=== PATIENT | male | born 1955 | race Caucasian/White ===

== ENCOUNTER 2020-05-11 10:17 | Emergency (ER) | payer MEDICARE, MEDICAID, SELFPAY ==
--- NOTE | 2020-05-11 10:18 | XR_ITS ---
WS: [id number] EXAM: AP PELVIS AND 2 VIEWS OF THE RIGHT HIP DATE OF EXAMINATION: 05/11/2020, 1030 hours COMPARISON: None. HISTORY: Patient is 64 years old with right hip pain status post twisting injury. Symptoms for the last month . FINDINGS: Bone density is normal in appearance. There are slight changes of arthritis lower lumbar spine. Surgi karma clips to the left of the lower spine from prior surgical procedure. Slight arterial atherosclerot ic plaque formation seen. Minimal arthritis within both SI joints. The right hip joint is unremarkabl e. No fracture, lytic or blastic process. There is a loop of air-filled small bowel in the right mid abdomen which is fairly nonspecific. Please correlate for GI symptomatology. GI staple line is seen in the left false pelvis. Presumably from prior colon surgery. Please correlat e. XR/XR hip RT 2-3V wo/w pel* [id number] IMPRESSION: No abnormality involving the right hip. Arthritis lower lumbar spine and both S I joints. Postop staple line in the left false pelvis region near the inferior SI joint. Presumably related to prior colon surgery. Please correlate clinicall y. Loop of air-filled nondilated small bowel right mid abdomen. Please correlate f or GI symptomatology.
[2020-05-11 10:35] VITALS: BP 128/82; PULSE 90; RESP 18; TEMP 36.4; O2SAT 98; BMI 18.8
--- NOTE | 2020-05-11 11:16 | W.ED.LOWEXIN ---
HPI - Extremity Injury (Lower) General: Chief Complaint: Extremity Injury, Lower Stated Complaint: R HIP INJURY Time Seen by Provider: 05/11/20 11:08 Source: patient Mode of arrival: ambulatory Limitations: no limitations History of Present Illness: HPI Narrative: Patient is a 64-year-old male who presents to ED today for evaluation of right hip pain. Patient tells me a few weeks ago he was sat down cutting a tree (states he is unable to bend over and cut trees any more) and when the tree fell he quickly jumped up and moved out of the way and states he heard a pop in his right hip and has experienced pain since. Patient has continued to ambulate on the extremity. Patient states over the past week pain has worsened. Patient is not describing any numbness, tingling, loss of sensation to his lower extremities. MD complaint: hip injury Onset (ago): week(s) Injury: Right: hip and pelvis Place: home Severity: severe Exacerbating factors: weight bearing, movement and palpation Associated symptoms: Reports no associated symptoms Other symptoms: none Review of Systems Const: Denies: fever(s) or chills GI: Denies: abdominal pain Musc: Reports: back pain, joint pain and joint stiffness; Denies: neck pain, extremity pain, extremity swelling, joint swelling, joint redness or limited range of motion Neuro: Denies: numbness in extremities, weakness in extremities, sensory changes or frequent falls Physical Exam Const: COMMON NORMALS: no acute distress, patient oriented x3, no limitations and alert GI: COMMON NORMALS: Soft to palpation, No hepatosplenomegaly present and no masses INSPECTION: Yes other (colostomy bag present) PALPATION: Yes Soft to palpation and Yes No hepatosplenomegaly present Back/Pelvis: COMMON NORMALS: thoracic and lumbar spine normal to inspection, no thoracic nor lumbar tenderness and thoraco-lumbar ROM normal SACROILIAC JOINTS: Yes SI joint(s) abnormal (TTP R) Extremity: COMMON NORMALS: full ROM, capillary refill normal, no joint enlargement, no clubbing, cyanosis or edema, no calf tenderness and no pedal edema GENERAL: Yes normal exam except as noted RIGHT LOWER EXTREMITY: Yes hip joint (TTP lateral/posterior ) Neuro: COMMON NORMALS: patient oriented x3, moves all extremities, no focal motor deficits and no sensory deficits noted SENSORIUM/ORIENTATION: Yes alert Skin: COMMON NORMALS: no rashes or lesions noted GENERAL SKIN EXAM: no rashes or lesions noted Course Vital Signs: Vital signs: Vital Signs Temperature 97.5 F L 05/11/20 10:35 Pulse Rate 90 05/11/20 10:35 Respiratory Rate 18 05/11/20 10:35 Blood Pressure 128/82 05/11/20 10:35 Pulse Oximetry 98 05/11/20 10:35 MDM - Extremity Injury (Lower) Imaging Data^: XR R hip/pelvis: Radiologist's impression: [facility] [address] [place] [address] XRay Report Signed Patient: Tushar Wilkins Unit #: [id number] : 1955 Age/Sex: 64 / M ADM Date: 05/11/20 Loc: ER Room/Bed: Attending Dr: Ordering Provider/Ordering MD: Joellen Valadez Date of Service: 05/11/20 Procedure(s): XR hip RT 2-3V wo/w pel* [id number] Accession Number(s): [id number] Report Number: [id number] WS: [id number] EXAM: AP PELVIS AND 2 VIEWS OF THE RIGHT HIP DATE OF EXAMINATION: 05/11/2020, 1030 hours COMPARISON: None. HISTORY: Patient is 64 years old with right hip pain status post twisting injury. Symptoms for the last month. FINDINGS: Bone density is normal in appearance. There are slight changes of arthritis lower lumbar spine. Surgical clips to the left of the lower spine from prior surgical procedure. Slight arterial atherosclerotic plaque formation seen. Minimal arthritis within both SI joints. The right hip joint is unremarkable. No fracture, lytic or blastic process. There is a loop of air-filled small bowel in the right mid abdomen which is fairly nonspecific. Please correlate for GI symptomatology. GI staple line is seen in the left false pelvis. Presumably from prior colon surgery. Please correlate. XR/XR hip RT 2-3V wo/w pel* [id number] IMPRESSION: No abnormality involving the right hip. Arthritis lower lumbar spine and both SI joints. Postop staple line in the left false pelvis region near the inferior SI joint. Presumably related to prior colon surgery. Please correlate clinically. Loop of air-filled nondilated small bowel right mid abdomen. Please correlate for GI symptomatology. Dictated By: Landon Frankel MD Signed By: Landon Frankel MD Signed Date/Time: 05/11/20 1036 DD/ 1033 Discharge Plan Discharge Patient Disposition: Home Clinical Impression: Acute pain of right hip Condition: Stable Prescriptions: New ibuprofen 800 mg tablet 800 mg PO Q8H PRN (Reason: pain) Qty: 20 RF: 0 tramadol 50 mg tablet 50 mg PO Q6H PRN (Reason: pain) Qty: 14 RF: 0 Medrol (Johnathon) 4 mg tablets,dose pack See Rx Instructions .ROUTE .COMPLEX Qty: 21 RF: 0 No Action clopidogrel 75 mg tablet 75 mg PO DAILY Qty: 90 RF: 3 Discharge Orders: Discharge Order (Routine); Ordered 05/11/20 Ordered By: Joellen Valadez Referrals: Lindsay North DO [Primary Care Provider] - Activity Restrictions/Additional Instructions: As discussed you may use the anti-inflammatory/ibuprofen as directed. Begin the steroid pack as well. Please reserve the Tramadol for severe pain only. You may keep your appointment with Dr. Mckeon next week for further evaluation. Coding Level of Care Code ED Sponsorship Coordinator for Ellie Covington
[2020-05-11 12:04] VITALS: BP 118/81; PULSE 86; RESP 16; O2SAT 95
== END 2020-05-11 12:04 | disposition home or self-care (01) ==
PROVIDERS: Emergency Provider Physician Assistant; Family Provider Family Medicine; PCP Family Medicine
DX: M25.551 Pain in right hip (principal)
CPT/HCPCS: 12345; 73502; 99282

== ENCOUNTER 2021-01-05 21:44 | Observation (INO) | payer MEDICARE, MEDICAID, SELFPAY ==
[2021-01-05 21:46] VITALS: BP 120/70; PULSE 71; RESP 18; TEMP 36.8; O2SAT 97; BMI 18.8
--- NOTE | 2021-01-05 21:50 | XR_ITS ---
WS: [id number] Left hip, AP and frog-leg views, AP pelvis, 01/05/2021 Clinical Data: fall Comparison: Pelvis and right hip, 05/11/2020. Findings: There is a line in the midportion of the left acetabulum which could represent a nondisplaced fractur e. The soft tissues are not remarkable. The adjacent pelvis is normal. The right hip is normal. The S I joints and pubic symphysis are unremarkable. There is a lateral plate attached to the mid and distal left femur. XR/XR hip LT 2-3V wo/w pel* [id number] Impression: 1. Probable undisplaced fracture of the left acetabulum. 2. Negative for left femoral head or left intertrochanteric fracture.
--- NOTE | 2021-01-05 21:54 | XR_ITS ---
WS: [id number] Left shoulder, 3 views, 01/05/2021 Clinical Data: fall Comparison: None. Findings: No fractures or dislocations are seen. The AC joint is normal. The adjacent left clavicle, left scapu la and ribs are normal. The soft tissues are unremarkable. XR/XR shoulder LT min 2V* [id number] Impression: Negative left shoulder.
--- NOTE | 2021-01-05 21:55 | ED_ITS ---
HPI - Fall General: Chief Complaint: Fall Stated Complaint: L HIP PAIN AND FALL Time Seen by Provider: 01/05/21 21:48 Source: patient and EMS Mode of arrival: EMS Limitations: no limitations History of Present Illness: HPI Narrative: 65-year-old male states he fell out of a truck that was sitting roughly an hour ago. He states he landed on his left hip. He states he had surgery on that hip before. He states he had pain difficulty standing. He states also shoulder pain. He denies any head injury or neck pain. He rates his pain a 5 out of 10. Associated symptoms-after fall: Denies abdominal pain, chest pain or headache(s) Review of Systems Const: Denies: fever(s), chills, body aches or change in appetite Eyes: Denies: blurry vision or eye discomfort ENMT: Denies: throat pain or dental pain Card: Denies: chest pain Resp: Denies: dyspnea GI: Denies: abdominal pain, nausea, vomiting or diarrhea : Denies: dysuria Musc: Reports: extremity pain Skin/Breast: Denies: rash Neuro: Denies: headache(s) Psych: Denies: depression Cristofer/Lymph: Denies: easy bruising All/Imm: Denies: urticaria PFSH ED PFSH: Medical History Alcohol abuse Colostomy in place Depression Hypotension Insomnia Peripheral vascular disease Psoriasis Surgical History History of intravascular stent placement (~2011) patient states that he has had many stents placed and I don't remember them all, but they were all in 2011 . S/P aorto-bifemoral bypass surgery Aortobifemoral bypass postop complication due to ischemic bowel underwent partial colectomy with ostomy Family History Denies family history of Suicide Anesthesia complication Bleeding disorder Stroke Social History Smoking and tobacco status: current every day smoker cigarettes Packs smoked per day: 2 Alcohol intake: current Alcohol intake frequency: 0-2 Drinks per Day Marital status: / service: No Current occupational status: unemployed, retired and disabled Physical Exam Const: COMMON NORMALS: no acute distress, patient oriented x3 and healthy appearing HENMT: COMMON NORMALS: normocephalic and atraumatic HEAD & SCALP: normocephalic and atraumatic Eye: COMMON NORMALS: Equal, round and reactive pupils present and EOMs intact bilaterally PUPIL: Yes Equal, round and reactive pupils present Neck/C-Spine: COMMON NORMALS: full ROM and supple Chest: COMMONS NORMALS: normal inspection of the chest and normal palpation of entire chest wall Resp: COMMON NORMALS: normal respiratory effort, No retractions, No use of accessory muscles and clear to auscultation bilaterally AUSCULTATION: clear to auscultation bilaterally Cardio: COMMON NORMALS: regular rate, regular rhythm and No murmurs present (Cardio) RATE: regular rate RHYTHM: regular rhythm GI: COMMON NORMALS: Normal to inspection, nondistended, normoactive bowel sounds present, Soft to palpation, non-tender and no masses PALPATION: Yes Soft to palpation Extremity: COMMON NORMALS: normal to inspection and full ROM Neuro: COMMON NORMALS: patient oriented x3, moves all extremities and no focal motor deficits Psych: COMMON NORMALS: mental status grossly normal, Normal thought process present and cooperative THOUGHT PROCESS: Normal thought process present Skin: COMMON NORMALS: no rashes or lesions noted and no wounds GENERAL SKIN EXAM: no rashes or lesions noted Course Vital Signs: Vital signs: Vital Signs Temperature 98.2 F 01/05/21 21:46 Pulse Rate 70 01/05/21 22:49 Respiratory Rate 18 01/05/21 22:56 Blood Pressure 120/70 01/05/21 21:46 Pulse Oximetry 98 01/05/21 22:56 MDM - Fall MDM Narrative: Medical decision making narrative: Patient presents with acetabular fracture from a fall. Patient is also intoxicated. He has no other injuries from his fall. Spoke to hospitalist will admit for pain control. Also consulted orthopedic surgeon. Lab Data: Labs: Lab Results 01/05/21 01/05/21 01/05/21 Range/Units 20:33 20:33 20:33 WBC 6.6 (4.0-10.0) 10^3/ uL RBC 5.15 (4.1-5.3) 10^6/u L Hgb 16.3 (11.7-16.6) g/dL Hct 48.2 (42.0-52.0) % MCV 93.6 (80-94) fL MCH 31.7 (28.0-34.0) pg MCHC 33.8 (30.0-36.0) g/dL RDW 13.2 (12.1-15.1) % Plt Count 138 (130-400) 10^3/c mm MPV 10.3 (7.4-10.4) fL Neut % (Auto) 64.7 % Lymph % (Auto) 20.0 % [place] % (Auto) 11.9 % Eos % (Auto) 1.2 % Baso % (Auto) 1.1 % Neut # (Auto) 4.24 (1.8-7.7) 10^3/u L Lymph # (Auto) 1.3 (0.8-4.8) 10^3/u L [place] # (Auto) 0.8 (0.2-0.9) 10^3/u L Eos # (Auto) 0.1 (0.0-0.8) 10^3/u L Baso # (Auto) 0.1 (0.0-0.1) 10^3/u L Nucleated RBC % (a uto) 0 % Nucleated RBCs # 0.0 /100WBC PT 13.60 (12.1-14.9) SECO NDS INR 1.01 (0.8-1.2) Sodium 129 L (136-145) mmol/L Potassium 3.7 (3.5-5.1) mmol/L Chloride 94 L (98-107) mmol/L Carbon Dioxide 20 L (22-29) mmol/L Anion Gap 18.7 (5-19) BUN 11 (8-23) mg/dL Creatinine 0.9 (0.7-1.2) mg/dL GFR Calculation 85.0 L (90-130) mL/min Glucose 111 (65-115) mg/dL Calculated Osmolal ity 268 L (285-295) mOsm/k g Calcium 8.7 (8.5-10.5) mg/dL Total Bilirubin 0.4 (0.15-1.2) mg/dL AST 56 H (0-40) U/L ALT 36 (0-41) U/L Alkaline Phosphata se 83 (40-130) IU/L Total Protein 7.9 (6.6-8.7) g/dL Albumin 4.6 (3.5-5.2) g/dL Globulin 3.3 (1.3-4.6) g/dL Ethyl Alcohol 211 H (0-10) mg/dL Imaging Data^: Other CT: Radiologist's impression: [address] [address] [address] Scan Report Signed Patient: Tushar Wilkins Unit #: [id number] : 1955 Age/Sex: 65 / M ADM Date: 01/05/21 Loc: ER Room/Bed: Attending Dr: Ordering Provider/Ordering MD: Moris Samano MD Date of Service: 01/05/21 Procedure(s): CT hip LT wo con* [id number] Accession Number(s): [id number] Report Number: [id number] PROCEDURE INFORMATION: Exam: CT Left Lower Extremity Without Contrast, Hip Exam date and time: 01/05/2021 10:34 PM Age: 65 years old Clinical indication: Injury or trauma; Blunt trauma; Prior surgery; Surgery type: Femoral fixation; Patient HX: Fall. C/O left hip pain. TECHNIQUE: Imaging protocol: CT of the Left lower extremity without contrast was performed. Exam focused on the hip. Radiation optimization: All CT scans at this facility use at least one of these dose optimization techniques: automated exposure control; mA and/or kV adjustment per patient size (includes targeted exams where dose is matched to clinical indication); or iterative reconstruction. COMPARISON: CR XR hip LT 2-3V wo/w pel* [id number] 01/05/2021 9:52 PM RADIATION DOSE METRICS: Total DLP (mGy-cm): 348.16 FINDINGS: Bones/joints: There is a mildly comminuted nondisplaced fracture through the roof of the acetabulum Soft tissues: Normal. CT/CT hip LT wo con* [id number] IMPRESSION: Acute nondisplaced fracture through the roof of the acetabulum on the left. Radiation Dose CTDIVOL = (mGy): DLP = 348.16 (mGy-cm) Discharge Plan Discharge Patient Disposition: Admitted As Inpatient Admit Provider: Nasreen Hilton Clinical Impression: Acute alcohol intoxication Qualifiers: Complication of substance-induced condition: uncomplicated Qualified Code(s): F10.920 - Alcohol use, unspecified with intoxication, uncomplicated Acetabular fracture Qualifiers: Encounter type: initial encounter Fracture type: closed Fracture alignment: nondisplaced Laterality: left Fall Qualifiers: Encounter type: initial encounter Qualified Code(s): W19.XXXA - Unspecified fall, initial encounter Condition: Stable Coding Level of Care Code ED Recruit Instructor for g Fwd Exam Comprehensive
--- NOTE | 2021-01-05 22:29 | CTR_ITS ---
PROCEDURE INFORMATION: Exam: CT Left Lower Extremity Without Contrast, Hip Exam date and time: 01/05/2021 10:34 PM Age: 65 years old Clinical indication: Injury or trauma; Blunt trauma; Prior surgery; Surgery type: Femoral fixation; Patient HX: Fall. C/O left hip pain. TECHNIQUE: Imaging protocol: CT of the Left lower extremity without contrast was performed. Exam focused on the hip. Radiation optimization: All CT scans at this facility use at least one of these dose optimization techniques: automated exposure control; mA and/or kV adjustment per patient size (includes targeted exams where dose is matched to clinical indication); or iterative reconstruction. COMPARISON: CR XR hip LT 2-3V wo/w pel* [id number] 01/05/2021 9:52 PM RADIATION DOSE METRICS: Total DLP (mGy-cm): 348.16 FINDINGS: Bones/joints: There is a mildly comminuted nondisplaced fracture through the roof of the acetabulum Soft tissues: Normal. CT/CT hip LT wo con* [id number] IMPRESSION: Acute nondisplaced fracture through the roof of the acetabulum on the left. Radiation Dose CTDIVOL = (mGy): DLP = 348.16 (mGy-cm)
[2021-01-05 22:49] VITALS: PULSE 70; RESP 15; O2SAT 98
[2021-01-05 22:56] VITALS: RESP 18; O2SAT 98
[2021-01-05] MEDS: morphine 4 mg/mL SDV 1 mL IVP (22:56)
--- NOTE | 2021-01-05 23:13 | PM.HP ---
Providers/Chief Complaint Primary Care Provider: Lindsay North DO Chief Complaint: L HIP PAIN AND FALL History of Present Illness Tushar Wilkins is a 65 year old male who has history of alcohol abuse, peripheral vascular disease, nicotine dependence presented today after sustaining a fall. Patient stating that he was loading logs when he lost his balance fell off the truck and fell on his left hip. He could not stand on left leg. He is denying chest pain, seizure activities, dizziness, he is attributing his fall to Wood logs falling on him. Yesterday he had 3 cans of beer and 2-4 shots of vodka. On daily basis he drinks 6 beers with 2-4 shots of vodka, smokes 1 to 2 packs of cigarettes a day. Never had any withdrawal from alcohol. Diagnostics in the ER revealed left acetabular roof fracture, inoperable, orthopedics consulted, recommended not weightbearing, patient is complaining of excruciating pain for which he is currently being admitted, he is intoxicated, alcohol level 211, sodium 129 Review of Systems Const: Denies: fever(s) Eyes: Denies: change in vision ENMT: Denies: throat pain Card: Denies: chest pain Resp: Denies: dyspnea GI: Denies: abdominal pain : Denies: flank pain Musc: Denies: neck pain Skin/Breast: Reports: rash, lesions, dry skin and nail changes Neuro: Denies: headache(s) Psych: Denies: anxiety Endo: Denies: polyuria Cristofer/Lymph: Denies: easy bruising All/Imm: Denies: urticaria Medications/Allergies Home Medications Medication Instructions Recorded Confirmed Last Taken Type clopidogrel 75 mg tablet 75 mg PO DAILY #90 tab 02/03/20 05/18/20 Unknown Rx ibuprofen 800 mg PO Q8H PRN #20 tab 05/11/20 05/18/20 Unknown Rx methylprednisolone [Medrol (Johnathon)] See Rx Instructions .ROUTE 05/11/20 05/18/20 Unknown Rx .COMPLEX #21 each tramadol 50 mg PO Q6H PRN #14 tab 05/11/20 05/18/20 Unknown Rx tramadol 50 mg tablet 50 mg PO Q6H PRN #30 tab 05/18/20 05/18/20 Unknown Rx Allergies Allergy/AdvReac Type Severity Reaction Status Date / Time nitroglycerin Allergy rash Verified 05/18/20 10:44 PFSH Acute PFSH: Medical History Alcohol abuse Colostomy in place Depression Hypotension Insomnia Peripheral vascular disease Psoriasis Surgical History History of intravascular stent placement (~2011) patient states that he has had many stents placed and I don't remember them all, but they were all in 2011 . S/P aorto-bifemoral bypass surgery Aortobifemoral bypass postop complication due to ischemic bowel underwent partial colectomy with ostomy Family History Denies family history of Suicide Anesthesia complication Bleeding disorder Stroke Social History Smoking and tobacco status: current every day smoker cigarettes Packs smoked per day: 2 Alcohol intake: current Alcohol intake frequency: 0-2 Drinks per Day Marital status: / service: No Current occupational status: unemployed, retired and disabled Vitals/I&O/Wt Last Vital Signs Temp 98.2 F 01/05/21 21:46 Pulse 70 01/05/21 22:49 Resp 18 01/05/21 22:56 BP 120/70 01/05/21 21:46 Pulse Ox 98 01/05/21 22:56 Weight last 48 hrs Weight 54.431 kg Physical Exam Narrative: EXAM NARRATIVE: Middle-age male was currently laying supine when entered the room Unkept appearance, Hands and clothes covered in dirt S1, S2 sinus rhythm with systolic murmur, no active signs of heart failure Bilateral breath sounds without adventitious rhonchi or crackles Abdomen soft nontender Colostomy bag has stool content No extremity no edema gangrene or ulcer Looks malnourished and emaciated Psoriasis, dry benavidez skin scales on extensor surfaces EOMI, PERRLA no neurological deficit Appropriate mood and affect no active signs of withdrawal Data : 01/05/21 20:33 01/05/21 20:33 A&P Assessment and plan (1) Hip fracture: Status: Acute (2) Acute alcohol intoxication: Status: Acute Additional A&P Information Hip fracture Patient sustained a fall which eject leading to losing balance while loading the truck with wood logs Left acetabular fracture Nonweightbearing, inoperable, orthopedic consulted, I will keep him on regular diet Eliquis for DVT prophylaxis Acute alcohol intoxication Last night he had 3 cans of beer and 2-4 shots of vodka Alcohol level reviewed No active signs of withdrawal at the time of my evaluation Start CIWA protocol Peripheral vascular disease: Continue Plavix No acute exacerbation, Kindly evaluate atorvastatin indication before discharge Full code Regular diet DVT prophylaxis Eliquis 2.5 twice daily Attestations Medical Necessity Statement*: Anticipating discharge in less than 48 hours, acetabular fracture and operable admitting overnight for pain management Time Spent in Patient Care: 35mins Coding Level of Care Code Acute Chemical Research Worker for Ellie Covington Diagnoses Hip fracture S72.009A Acute alcohol intoxication F10.929
[2021-01-05 23:16] LABS: Basophils # 0.1 10^3/uL (0.0-0.1); Basophils % 1.1 %; Eosinophils # 0.1 10^3/uL (0.0-0.8); Eosinophils % 1.2 %; Hematocrit 48.2 % (42.0-52.0); Hemoglobin 16.3 g/dL (11.7-16.6); Lymphocytes # 1.3 10^3/uL (0.8-4.8); Mean Corpuscular HGB Conc 33.8 g/dL (30.0-36.0); Mean Corpuscular Hemoglobin 31.7 pg (28.0-34.0); Mean Corpuscular Volume 93.6 fL (80-94); Mean Platelet Volume 10.3 fL (7.4-10.4); Monocytes # 0.8 10^3/uL (0.2-0.9); Monocytes % 11.9 %; Neutrophils # 4.24 10^3/uL (1.8-7.7); Neutrophils % 64.7 %; Nucleated Red Blood Cells % 0 %; Platelet Count 138 10^3/cmm (130-400); Red Blood Count 5.15 10^6/uL (4.1-5.3); Red Cell Distribution Width 13.2 % (12.1-15.1); White Blood Count 6.6 10^3/uL (4.0-10.0)
[2021-01-05 23:23] LABS: INR 1.01 (0.8-1.2)
[2021-01-05 23:29] LABS: Alanine Aminotransferase 36 U/L (0-41); Albumin Level 4.6 g/dL (3.5-5.2); Alcohol Level 211 mg/dL (0-10); Alkaline Phosphatase 83 IU/L (40-130); Anion Gap 18.7 (5-19); Aspartate Amino Transferase 56 U/L (0-40); Blood Urea Nitrogen 11 mg/dL (8-23); Calcium 8.7 mg/dL (8.5-10.5); Carbon Dioxide 20 mmol/L (22-29); Chloride 94 mmol/L (98-107); Globulin 3.3 g/dL (1.3-4.6); Glucose 111 mg/dL (65-115); Osmolality Calculated 268 mOsm/kg (285-295); Potassium 3.7 mmol/L (3.5-5.1); Sodium 129 mmol/L (136-145); Total Bilirubin 0.4 mg/dL (0.15-1.2); Total Protein 7.9 g/dL (6.6-8.7)
[2021-01-05 23:49] VITALS: PULSE 84; RESP 18; O2SAT 97
[2021-01-06] VITALS (10 sets, daily range): BP systolic 101–136; BP diastolic 55–76; PULSE 64–96; RESP 14–20; TEMP 36.6–37.3; O2SAT 93–98
[2021-01-06] MEDS: nicotine 21 mg Patch 1 PATCH TRANSDERMA ×2 (01:07→09:01)
[2021-01-06] MEDS: acetaminophen 500 mg Tablet PO (01:07)
[2021-01-06] MEDS: morphine 4 mg/mL SDV 1 mL 2 MG IVP ×3 (03:53→14:50)
[2021-01-06 06:26] LABS: Magnesium 1.8 mg/dL (1.7-2.3)
[2021-01-06] MEDS: apixaban 5 mg Tablet 2.5 MG PO (08:56)
[2021-01-06] MEDS: sennosides-docusate Tablet 1 TAB PO (08:58)
[2021-01-06] MEDS: multivitamin therapeutic Tablet 1 TAB PO (08:59)
[2021-01-06] MEDS: folic acid 1 mg Tablet PO (08:59)
[2021-01-06] MEDS: thiamine 100 mg Tablet PO (08:59)
[2021-01-06] MEDS: clopidogrel 75 mg Tablet PO (09:00)
--- NOTE | 2021-01-06 11:12 | PC.RESP ---
Smoking Cessation information sent to patient
--- NOTE | 2021-01-06 12:46 | PM.CONSULT ---
Providers/Reason For Consult Consulting Physican/Specialty*: Linsey Corral MD Reason for Consult*: Left acetabular fracture Requesting Physcian: Dr. Moris Samano Attending Physician: Anatoliy Painting Primary Care Provider: Lindsay North DO History of Present Illness History of Present Illness Tushar Wilkins is a 65 year old male who was in his usual state of health when he fell from a flatbed truck while standing on some logs. The patient fell onto his left lower extremity, and he presented to the emergency department complaining of pain and inability to weight-bear. The patient has a history of significant alcohol abuse, and he was intoxicated reportedly at the time of his presentation. He was unable to stand on his left leg, but he did deny chest pain or seizure activity prior to his fall. He notes that the logs did fall onto him once he had hit the ground. He was seen in the emergency department and at that time was found to have a comminuted nondisplaced fracture of the left acetabulum. Upon discussion, the emergency room was advised we could treat this nondisplaced acetabular fracture, but if surgical intervention was required, the patient went up to go to [place]. Review of Systems Const: Denies: fever(s), chills, body aches or change in appetite Eyes: Denies: change in vision, blurry vision or eye discomfort ENMT: Denies: throat pain or dental pain Card: Denies: chest pain Resp: Denies: dyspnea GI: Denies: abdominal pain, nausea, vomiting or diarrhea : Denies: flank pain or dysuria Musc: Reports: extremity pain; Denies: neck pain Skin/Breast: Reports: rash, lesions, dry skin and nail changes Neuro: Denies: headache(s) Psych: Denies: anxiety or depression Endo: Denies: polyuria Cristofer/Lymph: Denies: easy bruising All/Imm: Denies: urticaria Meds/Allergies Home Medications and Allergies Home Medications Medication Instructions Recorded Confirmed Last Taken Type acetaminophen [Tylenol Extra 1,000 mg PO PRN 01/06/21 01/06/21 01/04/21 History Strength] clopidogrel 75 mg PO QAM 01/06/21 01/06/21 01/05/21 History Allergies Allergy/AdvReac Type Severity Reaction Status Date / Time nitroglycerin Allergy rash Verified 01/06/21 08:43 Current Medications Current Medications Generic Name Dose Route Start Last Admin Trade Name Freq PRN Reason Stop Dose Admin Acetaminophen 500 mg 01/06/21 00:24 01/06/21 01:07 Acetaminophen 500 Mg Tablet PO 500 mg Q4H PRN Administration fever Apixaban 2.5 mg 01/06/21 09:00 01/06/21 08:56 Apixaban 5 Mg Tablet PO 2.5 mg BID@0900,2100 KIANNA Administration Clopidogrel Bisulfate 75 mg 01/06/21 09:00 01/06/21 09:00 Clopidogrel 75 Mg Tablet PO 75 mg DAILY KIANNA Administration Folic Acid 1 mg 01/06/21 09:00 01/06/21 08:59 Folic Acid 1 Mg Tablet PO 1 mg DAILY KIANNA Administration Morphine Sulfate 2 mg 01/06/21 00:24 01/06/21 09:01 Morphine 4 Mg/Ml Sdv 1 Ml IVP 2 mg Q4H PRN Administration SEVERE PAIN Multivitamins Therapeutic 1 tab 01/06/21 09:00 01/06/21 08:59 Multivitamin Therapeutic Tablet PO 1 tab DAILY KIANNA Administration Nicotine 1 patch 01/06/21 01:01 01/06/21 09:01 Nicotine 21 Mg Patch TRANSDERMA 1 patch DAILY KIANNA Administration Senna/Docusate Sodium 1 tab 01/06/21 09:00 01/06/21 08:58 Sennosides-Docusate Tablet PO 1 tab DAILY KIANNA Administration Thiamine Mononitrate 100 mg 01/06/21 09:00 01/06/21 08:59 Thiamine 100 Mg Tablet PO 100 mg DAILY KIANNA Administration PFSH Acute PFSH: Medical History Alcohol abuse Colostomy in place Depression Hypotension Insomnia Peripheral vascular disease Psoriasis Surgical History History of intravascular stent placement (~2011) patient states that he has had many stents placed and I don't remember them all, but they were all in 2011 . S/P aorto-bifemoral bypass surgery Aortobifemoral bypass postop complication due to ischemic bowel underwent partial colectomy with ostomy Family History Denies family history of Suicide Anesthesia complication Bleeding disorder Stroke Social History Smoking and tobacco status: current every day smoker cigarettes Packs smoked per day: 2 Alcohol intake: current Alcohol intake frequency: 0-2 Drinks per Day Marital status: / service: No Current occupational status: unemployed, retired and disabled Vitals/I&O/Wt Last Vital Signs Temp 98.6 F 01/06/21 11:43 Pulse 96 01/06/21 11:43 Resp 18 01/06/21 11:43 BP 130/70 01/06/21 11:43 Pulse Ox 98 01/06/21 11:43 01/05/21 01/06/21 01/06/21 22:59 06:59 14:59 Intake Total 140 / 140 Output Total 925 / 925 Balance -925 / -925 140 / 140 Weight last 48 hrs Weight 120 lb Physical Exam Const: COMMON NORMALS: no acute distress, patient oriented x3 and alert; negative for average body habitus, negative for healthy appearing and negative for well nourished GENERAL APPEARANCE: cooperative, comfortable and disheveled NUTRITIONAL APPEARANCE: underweight ORIENTATION/CONSCIOUSNESS: Yes awake, Yes oriented to person, Yes oriented to place and Yes oriented to time HENMT: COMMON NORMALS: normocephalic and atraumatic HEAD & SCALP: normocephalic and atraumatic Eye: GENERAL EYE: appearance normal, both eyes and all related structures Chest: COMMONS NORMALS: normal inspection of the chest Resp: COMMON NORMALS: normal respiratory effort EFFORT & INSPECTION: Yes able to speak in complete sentences and Yes symmetric chest movement Back/Pelvis: PELVIS: Yes Other pelvic findings (Tender to any range of motion or attempted palpation) Extremity: LEFT LOWER EXTREMITY: Yes hip joint (Patient is sitting up in a chair) Left hip: Yes inspection (There is no significant bruising), Yes palpation (Tender over the buttocks and lateral hip), Yes ROM (Pain with attempted range of motion) and Yes neurovascular exam (Intact distally) Neuro: COMMON NORMALS: patient oriented x3 SENSORIUM/ORIENTATION: Yes alert, Yes oriented to person, Yes oriented to place and Yes oriented to time Psych: COMMON NORMALS: mental status grossly normal APPEARANCE: Yes grossly normal ATTITUDE: Yes calm and Yes engaged ATTENTION/CONCENTRATION: Yes attention grossly intact Skin: COMMON NORMALS: no rashes or lesions noted GENERAL SKIN EXAM: no rashes or lesions noted Data Imaging^: Xray Ortho: I personally reviewed and interpreted this imaging study as follows: My impression: I have personally reviewed the patient's imaging of the pelvis. The small nondisplaced fracture line is visible. This is in the weightbearing portion of the acetabulum on the left. Additionally, previous hardware from the patient's ORIF of a more distal femur fracture on the same left femur is also visualized. Other CT: I personally reviewed and interpreted this imaging study as follows: My impression: CT of the acetabulum confirms that there is a comminuted minimally to nondisplaced acetabular roof fracture on the left. A&P Assessment and plan (1) Closed left acetabular fracture: Patient was admitted through the emergency department with complaints of inability to weight-bear on the left lower extremity. This occurred after he fell off a flat bed of a pickup truck and logs reportedly fell onto him. Upon presentation to the emergency department, he was acutely intoxicated. He was admitted to the hospital for monitoring and pain control. He appeared otherwise stable. Today, when the patient is evaluated, he is sitting up in a chair. He appears comfortable, but any palpation or range of motion to the patient's left lower extremity causes him discomfort. He notes he has a walker at home, and this is likely the result of his previous femur fracture on the same side which was treated by Dr. Mckeon. He also notes he has a wheelchair at home. He is strongly advised to remain nonweightbearing. I have advised him that if he weightbears and displaces this fracture, he will have to be transferred to a trauma center for definitive operative treatment. He appears to understand. Have also spoken about the patient with Dr. Painting, and I have advised him he is ready for discharge when medically appropriate. Status: Acute Qualifiers: Encounter type: initial encounter Sublocation of acetabulum: dome Fracture alignment: nondisplaced Qualified Code(s): S32.485A - Nondisplaced dome fracture of left acetabulum, initial encounter for closed fracture Consult Attestations Medical Necessity Statement: Per hospitalist team, the patient requires further monitoring. Coding Level of Care Code Acute Disk Recoater for g Fwd Exam Comprehensive Medical Decision Making Moderate Complexity Diagnoses Closed left acetabular fracture S32.485A Encounter type: initial encounter Sublocation of acetabulum: dome Fracture alignment: nondisplaced Comment Please include acetabular fracture treatment nonoperative
--- NOTE | 2021-01-06 13:39 | PC.CHAP ---
Pastoral Care Encounter/Spiritual Assessment Type of Contact [] Declined knitter mechanic visit [] Patient/Family/Request visit [] Outpatient visit [] Follow-up visit [] Physician referral [] Code/Alert [xx] Routine visit [] Staff referral [] Actively dying [] Patient sleeping [] Family support [] [] Out of room [] Palliative care [] [] Receiving care in room [] Pre-surgical visit [] Trauma [] Long length of stay [] ICU visit [] Other: Relational/Emotional Strength [] Patient feels connected with others/family/visitors/staff [] Distress [] Loneliness/isolation [] Abandonment Spirituality of Patient [] Person of Linda [] Attends Restorationist of their Linda [xx] Believes in Prayer [] Reads Bible or Methodist materials [] There are Spiritual issues to be addressed Sow Farm Barn Technician Interventions [xx] Prayer [xx] Active listening [xx] Non-anxious presence [] Spiritual/emotional support [] Crisis/trauma care [] Spiritual counseling [] Bereavement support [] Provided bereavement packet [] Provided Bible/devotional materials [] Provided toy/stuffed animal, coloring book to patient or family member [] Provided Communion [] Anointing/Isabel [] Salvation [xx] Completed spiritual assessment [] Other: Impact on Illness or Injury [] Angry [] Fearful [] Anxious [] Often cries [] Exhaustion [] Unable to work [] Unable to attend nondenominational [] Unable to walk/stand [] Unable to read [] Unable to drive [] Unable to eat/drink [] Unable to sleep [] Unable to be with family [] Patient intubated [] Other: Summary Patient stated he feels somewhat better than when he came in but wanted prayer for complete healing. Sow Farm Barn Technician complied. Patient did not want visit for any other reason except prayer. Time spent with patient 5 minutes
[2021-01-06] MEDS: magnesium sulfate premix 2 GM/50 ML PIGGYBACK IV (15:51)
[2021-01-06 16:29] LABS: Hemoglobin 15.7 g/dL (11.7-16.6)
[2021-01-06 17:04] LABS: Anion Gap 17.3 (5-19); Blood Urea Nitrogen 13 mg/dL (8-23); Calcium 8.9 mg/dL (8.5-10.5); Carbon Dioxide 19 mmol/L (22-29); Chloride 99 mmol/L (98-107); Creatinine Clr Calc Pharmacy 71.8187; Glomerular Filtration Rate 97.3 mL/min (90-130); Glucose 88 mg/dL (65-115); Osmolality Calculated 272 mOsm/kg (285-295); Potassium 4.3 mmol/L (3.5-5.1); Sodium 131 mmol/L (136-145)
--- NOTE | 2021-01-06 19:37 | PC.NURSE ---
PT HAS DONE WELL FOR ME TODAY. PT HAS HAD SOME COMPLAINTS OF PAIN BUT IMPROVED WITH MORPHINE. PT WAS UP TO CHAIR TWICE TODAY AND WORKED WITH PHYSICAL THERAPY ON HOW TO GET AROUND WITHOUT BEARING WEIGHT ON THE LEFT LEG ORDERED. PT SAID HE HAD A WALKER AT HOME AND THAT IS WHAT HE WILL USE TO HELP HIM GET AROUND AT HOME. DR. TORRES WAS OK WITH THAT. SHE ALSO DISCUSSED THE IMPORTANCE OF HIM NOT BEARING WEIGHT ON LEG AND THE TIME HE WOULD NEED TO FOLLOW THOSE ORDERS, NOT DRINKING ALCOHOL/SMOKING, IMPROVING HIS DIET TO HELP HEALING, WHEN SHE WOULD LIKE TO SEE PT, AND ALL POSSIBILITIES OF HIS CONDITION. PT WAS DISCHARGED FROM DR. TORRES'S SIDE. PT HAD NO FURTHER QUESTIONS FOR DR. TORRES. DR. PFEIFFER WAS ALSO IN TO SEE PT THIS AFTERNOON AND DECIDED IT WAS OK TO DISCHARGE HIM FROM HIS SIDE. PT'S DISCHARGE COMPLETED BY THIS NURSE AT 1935. PAPERWORK WAS DISCUSSED WITH PT. ALL QUESTIONS WERE ANSWERED, PT HAD NO FURTHER QUESTIONS FOR ME. PT IS NOW WAITING ON RIDE TO GET HERE. RIDE SHOULD BE HERE AROUND 2000 PER PT. REPORT WAS GIVEN TO METAL FORGER'S ASSISTANT NURSE Janessa MONTIEL RN. THIS NURSE TOLD THE METAL FORGER'S ASSISTANT NURSE THAT THE DISCHARGE PACKET WOULD BE GIVEN TO AND GONE OVER WITH THE PT BEFORE I LEFT. THE METAL FORGER'S ASSISTANT NURSE ASKED ME TO LEAVE PTS IV IN JUST A PRECAUTION. PT IS READY TO LEAVE PENDING REMOVAL OF THE IV AND RIDE TO GET HERE. METAL FORGER'S ASSISTANT WILL CONTINUE TO MONITOR AND CARE FOR UNTIL THEN.
--- NOTE | 2021-01-06 22:27 | P.DS_ITS ---
Discharge Providers Date of Admission: 01/05/21 23:11 Date of Discharge: January 06, 2021 Attending Provider at Admission: Nasreen Hilton MD Attending Provider at Discharge: Anatoliy Painting Primary Care Provider: Lindsay North DO Diagnoses at Discharge Discharge Diagnosis (1) Closed left acetabular fracture: Status: Acute Qualifiers: Encounter type: initial encounter Sublocation of acetabulum: dome Fracture alignment: nondisplaced Qualified Code(s): S32.485A - Nondisplaced dome fracture of left acetabulum, initial encounter for closed fracture Reason for Visit Reason for Visit: L HIP PAIN AND FALL Hospital Course Hospital Course Pleasant 65-year-old gentleman with history of alcohol abuse, peripheral arterial disease, psoriasis, smoking addiction was placed in observation after sustaining a fall of his truck, falling on his left hip subsequently could not stand on the left leg. With noted elevated EtOH level on presentation (211), head 3 cans of beers, 2-4 shots of vodka. Reported on daily basis drinking 6 beers with 2-4 shots of vodka. Smokes 1-2 packs/day. No history of alcohol withdrawal. Orthopedic surgery was consulted for assessment of left superior acetabular fracture. He was monitored in the hospital, assessed by PT, also had his sodium with moderate hyponatremia 129 presentation reassessed, as well as recheck of hemoglobin this evening. Surgical intervention was not found indicated at this time. He was instructed to remain nonweightbearing on the left leg and to use his walker for ambulation at all times. Both orthopedic surgeon and myself went over in detail regarding risks of complication of displaced fracture, need for surgical intervention wh ich also could not be performed at this facility. He stated understanding, and agreement. He is instructed to follow-up with orthopedics in office in several weeks. We also had a discussion regarding continued risks of alcohol consumption, and he states that he is able to stop drinking. He feels that at this time he can do it without turning to rehabilitation for assistance. States he has done it once before. On reassessment his sodium improved to 131. Hemoglobin remained stable around 16. He is otherwise doing well, without any signs of alcohol withdrawal. Given peripheral artery disease, psoriasis, we also discussed consideration of potential benefit from statin. Currently he has mild transaminitis suspected due to injury from alcohol. Please reassess liver parameters, and please revisit initiation of statin for cardiovascular risk reduction if liver function is found stable. Needs continued follow-up regarding psoriasis. He chooses to establish care with Anjelica Raymond's office Physical Exam Const: COMMON NORMALS: no acute distress, patient oriented x3 and alert GENERAL APPEARANCE: cooperative and comfortable ORIENTATION/CONSCIOUSNESS: Yes awake HENMT: COMMON NORMALS: oropharynx normal Neck/C-Spine: COMMON NORMALS: no JVD Resp: COMMON NORMALS: normal respiratory effort and clear to auscultation bilaterally AUSCULTATION: clear to auscultation bilaterally Cardio: COMMON NORMALS: no JVD, regular rhythm, S1 normal heart sound present, S2 normal heart sound present and No murmurs present (Cardio) RHYTHM: regular rhythm HEART SOUNDS: S1 normal heart sound present and S2 normal heart sound present GI: COMMON NORMALS: Normal to inspection, nondistended, normoactive bowel sounds present, Soft to palpation and non-tender PALPATION: Yes Soft to palpation Extremity: COMMON NORMALS: no joint enlargement and no pedal edema OTHER: Left hip without ecchymosis, bleeding or lesions. Neuro: COMMON NORMALS: patient oriented x3 and moves all extremities SENSORIUM/ORIENTATION: Yes alert Skin: OTHER: Psoriatic lesions on forearms Discharge Data Data Completed and Pending: Completed Studies During Hospitalization Category Date Time Status CT hip LT wo con* [id number] Urgent Cat Scan 01/05/21 22:29 Completed XR hip LT 2-3V wo /w pel* [id number] Stat Exams 01/05/21 21:50 Completed XR shoulder LT mi n 2V* [id number] Stat Exams 01/05/21 21:54 Completed Labs from last 24 hours 01/06/21 01/06/21 01/06/21 16:22 16:22 05:12 WBC RBC Hgb 15.7 Hct MCV MCH MCHC RDW Plt Count MPV Neut % (Auto) Lymph % (Auto) [place] % (Auto) Eos % (Auto) Baso % (Auto) Neut # (Auto) Lymph # (Auto) [place] # (Auto) Eos # (Auto) Baso # (Auto) Nucleated RBC % (a uto) Nucleated RBCs # PT INR Sodium 131 L Potassium 4.3 Chloride 99 Carbon Dioxide 19 L Anion Gap 17.3 BUN 13 Creatinine 0.8 GFR Calculation 97.3 Glucose 88 Calculated Osmolal ity 272 L Calcium 8.9 Magnesium 1.8 Total Bilirubin AST ALT Alkaline Phosphata se Total Protein Albumin Globulin Ethyl Alcohol 01/05/21 01/05/21 01/05/21 20:33 20:33 20:33 WBC 6.6 RBC 5.15 Hgb 16.3 Hct 48.2 MCV 93.6 MCH 31.7 MCHC 33.8 RDW 13.2 Plt Count 138 MPV 10.3 Neut % (Auto) 64.7 Lymph % (Auto) 20.0 [place] % (Auto) 11.9 Eos % (Auto) 1.2 Baso % (Auto) 1.1 Neut # (Auto) 4.24 Lymph # (Auto) 1.3 [place] # (Auto) 0.8 Eos # (Auto) 0.1 Baso # (Auto) 0.1 Nucleated RBC % (a uto) 0 Nucleated RBCs # 0.0 PT 13.60 INR 1.01 Sodium 129 L Potassium 3.7 Chloride 94 L Carbon Dioxide 20 L Anion Gap 18.7 BUN 11 Creatinine 0.9 GFR Calculation 85.0 L Glucose 111 Calculated Osmolal ity 268 L Calcium 8.7 Magnesium Total Bilirubin 0.4 AST 56 H ALT 36 Alkaline Phosphata se 83 Total Protein 7.9 Albumin 4.6 Globulin 3.3 Ethyl Alcohol 211 H Vitals: Last Vital Signs Temp 98.0 F 01/06/21 21:07 Pulse 95 01/06/21 21:07 Resp 18 01/06/21 21:07 BP 136/76 01/06/21 21:07 Pulse Ox 95 01/06/21 21:07 Discharge Plan Discharge Patient Disposition: Home Condition: Stable Prescriptions: New folic acid 1 mg Tablet 1 mg PO DAILY Qty: 30 RF: 0 Vitamin B-1 (mononitrate) 100 mg Tablet 100 mg PO DAILY Qty: 30 RF: 0 Thera 400 mcg Tablet 1 tab PO DAILY Qty: 30 RF: 0 Continued clopidogrel 75 mg tablet 75 mg PO QAM RF: 0 Tylenol Extra Strength 500 mg Tablet 1,000 mg PO PRN RF: 0 Discharge Orders: Discharge Order (Routine); Ordered 01/06/21 Ordered By: Anatoliy Painting Referrals: Anjelica Raymond FNP [Nurse Practitioner] - 4-7 days (Please call Anjelica Raymond's office on Saturday and schedule an appointment to see Anjelica next week.) Linsey Corral MD [Physician] - 2 weeks ([facility] will call you Saturday and set up an appointment for you to follow up with Dr. Corral.) Discharge Diet: Low Cholesterol Discharge Activity: Limit activity as instructed, Use walker/crutches as instructed and Wheelchair as instructed Patient Instructions: Alcohol Abuse, Alcoholism, How to Stop Smoking (GEN), Pelvic Fracture (GEN), Cigarette Smoking and Your Health (GEN), Fall Prevention (GEN) Activity Restrictions/Additional Instructions: Nonweightbearing left lower extremity using walker, crutches, or wheelchair. Please abstain from drinking any alcohol. Please discuss with your primary care doctor to reassess your liver parameters to make sure they come back to normal. There is concern for some liver injury from alcohol. Once liver parameters are back to normal please discuss with your primary care doctor starting a cholesterol medication to help reduce risk of progression of peripheral artery disease. Discharge Attestations Time Spent in Discharge Care*: greater than 30 min Quality Metrics Clinical Quality Measures During this hospital stay, did patient experience: None Coding Level of Care Code Acute g DC note Diagnoses Closed left acetabular fracture S32.485A Encounter type: initial encounter Sublocation of acetabulum: dome Fracture alignment: nondisplaced
== END 2021-01-06 20:40 | disposition home or self-care (01) ==
LOC: ER 21:58 → MEDSURG 23:34
PROVIDERS: Admitting Provider Internal Medicine; Emergency Provider Emergency Medicine; PCP Family Medicine; Visit Provider Internal Medicine
DX: S32.485A Nondisplaced dome fracture of left acetabulum, initial encounter for closed fracture (principal); W23.0XXA Caught, crushed, jammed, or pinched between moving objects, initial encounter; R41.82 Altered mental status, unspecified; F10.929 Alcohol use, unspecified with intoxication, unspecified; I73.9 Peripheral vascular disease, unspecified; F17.210 Nicotine dependence, cigarettes, uncomplicated
CPT/HCPCS: 36415; 73030; 73502; 73700; 80048; 80053; 80307; 83735; 85018; 85025; 85610; 96361; 96365; 96374; 97161; 97530; 99285; G0378; J2270; J3411; J3475